=== PATIENT | female | born 1940 | race Two or more races ===

== ENCOUNTER 2022-11-28 06:28 | Day surgery (SDC) | payer OTHER | END 2022-11-28 11:10 | disposition home or self-care (01) | LOC: AMB-ENDOS 06:28 | PROVIDERS: ATTEND Colon & Rectal Surgery | DX: D12.3 Benign neoplasm of transverse colon (principal); K57.30 Diverticulosis of large intestine without perforation or abscess without bleeding; K64.8 Other hemorrhoids; Z20.822 Contact with and (suspected) exposure to COVID-19 ==

== ENCOUNTER 2023-05-08 07:56 | Day surgery (SDC) | payer OTHER | END 2023-05-08 11:50 | disposition home or self-care (01) | LOC: AMB-ENDOS 07:56 | PROVIDERS: ATTEND Colon & Rectal Surgery | DX: D12.3 Benign neoplasm of transverse colon (principal); K63.5 Polyp of colon; K57.30 Diverticulosis of large intestine without perforation or abscess without bleeding; D12.2 Benign neoplasm of ascending colon ==